=== PATIENT | female | born 1980 | race African-American/Black ===

== ENCOUNTER 2017-04-06 15:38 | Emergency (ER) | payer OTHER ==
[2017-04-06 15:51] VITALS: BP 147/96; PULSE 89; TEMP 98.5; BMI 30.6
--- NOTE | 2017-04-06 15:53 | PDOC ---
Rapid Medical Evaluation Time Seen by Provider: 04/06/17 15:48 Medical Evaluation: Allergies Allergy/AdvReac Type Severity Reaction Status Date / Time No Known Allergies Allergy Verified 12/27/13 18:11 I have performed a brief in-person evaluation of this patient. The patient presents with a chief complaint of: right wrist pain s/p work injury. 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 Pertinent physical exam findings: pain and swelling to medial right wrist. Pain with pronation and extension of right wrist. I have ordered the following: xray right wrist and hand, hcg The patient will proceed to the ED for further evaluation.
[2017-04-06] MEDS ORDERED: KETOROLAC TROMETHAMINE 60 MG/2 ML VIAL IM ONE (16:59)
[2017-04-06] MEDS ORDERED: KETOROLAC TROMETHAMINE 60 MG/2 ML VIAL ONE (17:00)
--- NOTE | 2017-04-06 17:21 | PDOC ---
History of Present Illness - General Chief Complaint: Injury Stated Complaint: RT WRIST PAIN Time Seen by Provider: 04/06/17 15:48 - History of Present Illness Initial Comments: 04/06/17 17:10 CHIEF COMPLAINT: wrist pain HISTORY OF PRESENT ILLNESS: 37 yo F presents to [facility] [employer] with wrist pain s/p work related injury. 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 PAST MEDICAL HISTORY: Denies past medical history FAMILY HISTORY: Denies SOCIAL HISTORY: Denies tobacco, alcohol, illicit drug use. SURGICAL HISTORY: Denies ALLERGIES: morphine REVIEW OF SYSTEMS General/Constitutional: Denies fever or chills. Denies weakness, weight change. HEENT: Denies change in vision. Denies ear pain or discharge. Denies sore throat. Cardiovascular: Denies chest pain or shortness of breath. Respiratory: Denies cough, wheezing, or hemoptysis. Gastrointestinal: Denies nausea, vomiting, diarrhea or constipation. Denies rectal bleeding. Genitourinary: Denies dysuria, frequency, or change in urination. Musculoskeletal: Pain and swelling to R wrist. Skin and breasts: Denies rash or easy bruising. PHYSICAL EXAM General Appearance: Well-appearing, appropriately dressed. No apparent distress. HEENT: EOMI, PERRLA. No conjunctival pallor. No photophobia, scleral icterus. Respiratory/Chest: Lungs CTAB. Cardiovascular: RRR. S1, S2. Musculoskeletal/Extremities: Swelling and reproducible pain with flexion/ extension of R wrist.FROM of all other extremities, normal capillary refill. Pelvis Stable. No CVA tenderness. No tenderness to extremities, pedal edema, swelling, erythema or deformity. Integumentary: Appropriate color, dry, warm. 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 Fully oriented, alert. Appropriate mood/affect. Motor strength 5/5. No appreciable EOM palsy, facial droop or sensory deficit. 04/06/17 17:34 Past History - Past Medical History Allergies/Adverse Reactions: Allergies Allergy/AdvReac Type Severity Reaction Status Date / Time morphine Allergy Verified 04/06/17 15:51 Home Medications: Ambulatory Orders Diclofenac Sodium 75 mg PO BID #14 tablet. 01/03/18 Asthma: No Cancer: No Cardiac Disorders: No COPD: No Diabetes: No HTN: No Seizures: No Thyroid Disease: No - Immunization History Td Vaccination: Yes Immunization Up to Date: Yes - Suicide/Smoking/Psychosocial Hx Smoking Status: No Smoking History: Never smoked Years of Tobacco Use: 0 Have you smoked in the past 12 months: No Number of Cigarettes Smoked Daily: 0 Cigars Per Day: 0 Hx Alcohol Use: Yes (SOCIAL) Drug/Substance Use Hx: No Substance Use Type: None Hx Substance Use Treatment: No *Physical Exam - Vital Signs Last Vital Signs Temp Pulse Resp BP Pulse Ox 98.5 F 89 20 147/96 98 04/06/17 15:48 04/06/17 15:48 04/06/17 15:48 04/06/17 15:48 04/06/17 15:48 ED Treatment Course - ADDITIONAL ORDERS Additional order review: Laboratory Results 04/06/17 16:25 Urine HCG, Qual Negative - Medications Given in the ED: ED Medications Discontinued Medications Generic Name Dose Route Start Last Admin Trade Name Freq PRN Reason Stop Dose Admin Ketorolac Tromethamine 60 mg 04/06/17 16:59 04/06/17 17:03 Toradol Injection - IM 04/06/17 17:00 60 mg ONCE ONE Administration Medical Decision Making - Medical Decision Making 04/06/17 17:36 37 yo F presents to [facility] with wrist pain s/p work related injury. -urine preg -xray x-ray negative for fracture or dislocation. wrist splint NSAIDS for pain Advised patien tto f/u with ortho if pain persists; patient verbalized understanding and agrees to plan. *DC/Admit/Observation/Transfer Diagnosis at time of Disposition: Right wrist sprain Qualifiers: Encounter type: initial encounter Qualified Code(s): S63.501A - Unspecified sprain of right wrist, initial encounter - Discharge Dispostion Disposition: HOME Condition at time of disposition: Stable Admit: No - Prescriptions Prescriptions: Diclofenac Sodium 75 mg PO BID #14 tablet.dr - Referrals Referrals: Myron Mitchell MD [Primary Care Provider] - Nikolai Duarte MD [Staff Physician] - - Patient Instructions Printed Discharge Instructions: DI for Wrist Sprain Additional Instructions: Please take medications as prescribed. If your symptoms persist for more than 3 -5 days, please follow up with the hand/wrist specialist for further evaluation. If you develop any new or worsening symptoms, please return to the ER. - Post Discharge Activity Forms/Work/School Notes: Back to Work
== END 2017-04-06 17:28 | disposition home or self-care (01) ==
LOC: JERFT 15:38
PROC: 3E0233Z Introduction of Anti-inflammatory into Muscle, Percutaneous Approach (ICD-10-PCS; principal; 2017-04-06)
PROC: 2W3CX1Z Immobilization of Right Lower Arm using Splint (ICD-10-PCS; 2017-04-06)
DX: S63.501A Unspecified sprain of right wrist, initial encounter (principal); X50.0XXA Overexertion from strenuous movement or load, initial encounter; Y93.F2 Activity, caregiving, lifting; Y92.128 Other place in nursing home as the place of occurrence of the external cause; Y99.0 Civilian activity done for income or pay
CPT/HCPCS: 73110-TC-RT; 73130-TC-RT; 84703; 99281-25

== ENCOUNTER 2017-05-09 08:26 | Emergency (ER) | payer OTHER ==
[2017-05-09 08:36] VITALS: BP 130/78; PULSE 80; TEMP 97.9; BMI 32.1
--- NOTE | 2017-05-09 10:15 | PDOC ---
History of Present Illness - General Chief Complaint: Cold Symptoms Stated Complaint: COUGH Time Seen by Provider: 05/09/17 10:03 History Source: Patient Exam Limitations: No Limitations - History of Present Illness Initial Comments: 05/09/17 10:10 c/o cough for 2 days. no fever no chills. no asthma history. Past History - Past Medical History Allergies/Adverse Reactions: Allergies Allergy/AdvReac Type Severity Reaction Status Date / Time morphine Allergy Verified 05/09/17 08:33 Home Medications: Ambulatory Orders Diclofenac Sodium 75 mg PO BID #14 tablet. 04/06/17 Benzonatate [Tessalon Pearls -] 100 mg PO TID #21 capsule 05/09/17 Asthma: No Cancer: No Cardiac Disorders: No COPD: No Diabetes: No HTN: Yes Seizures: No Thyroid Disease: No - Immunization History Td Vaccination: Yes Immunization Up to Date: Yes - Suicide/Smoking/Psychosocial Hx Smoking Status: No Smoking History: Never smoked Years of Tobacco Use: 0 Have you smoked in the past 12 months: No Number of Cigarettes Smoked Daily: 0 Cigars Per Day: 0 Information on smoking cessation initiated: No Hx Alcohol Use: Yes (SOCIAL) Drug/Substance Use Hx: No Substance Use Type: None Hx Substance Use Treatment: No Review of Systems - Review of Systems Able to Perform ROS?: Yes Is the patient limited [place] proficient: No Constitutional: No: Symptoms Reported Respiratory: Yes: Symptoms reported, Cough *Physical Exam - Vital Signs Last Vital Signs Temp Pulse Resp BP Pulse Ox 97.9 F 80 18 130/78 100 05/09/17 08:34 05/09/17 08:34 05/09/17 08:34 05/09/17 08:34 05/09/17 08:34 - Physical Exam General Appearance: Yes: Nourished, Appropriately Dressed HEENT: positive: EOMI, WALDO, TMs Normal, Pharynx Normal. negative: TM Erythema Neck: positive: Supple. negative: Tender Respiratory/Chest: positive: Lungs Clear, Normal Breath Sounds. negative: Crackles, Rales, Rhonchi, Stridor, Wheezing Cardiovascular: positive: Regular Rhythm, Regular Rate Gastrointestinal/Abdominal: positive: Normal Bowel Sounds, Soft Musculoskeletal: positive: Normal Inspection Extremity: positive: Normal Capillary Refill, Normal Inspection, Normal Range of Motion Integumentary: positive: Normal Color, Dry, Warm Neurologic: positive: Fully Oriented, Alert, Normal Mood/Affect, Normal Response , Motor Strength /5 Medical Decision Making - Medical Decision Making 05/09/17 10:11 cc: cough with exp wheeze last night no wheeze today no fever no abd pain or vomiting. will give cough medicine non toxic well appearing *DC/Admit/Observation/Transfer Diagnosis at time of Disposition: Cough in adult - Discharge Dispostion Disposition: HOME Condition at time of disposition: Good - Prescriptions Prescriptions: Benzonatate [Tessalon Pearls -] 100 mg PO TID #21 capsule - Referrals Referrals: Myron Mitchell MD [Primary Care Provider] - - Patient Instructions Printed Discharge Instructions: How to Avoid a Cold or Flu Additional Instructions: drink pleanty of water take tessalon for cough follow with your doctor if any worsening symptoms - Post Discharge Activity
== END 2017-05-09 10:17 | disposition home or self-care (01) ==
LOC: JERFT 08:26
DX: R05 Cough (principal)
CPT/HCPCS: 99281-25

== ENCOUNTER 2018-01-16 12:03 | Emergency (ER) | payer OTHER ==
[2018-01-16 12:06] VITALS: BP 140/92; PULSE 99; TEMP 99.4; BMI 33.6
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
== END 2018-01-16 13:34 | disposition home or self-care (01) ==
LOC: JERFT 12:03
DX: S90.32XA Contusion of left foot, initial encounter (principal); W20.8XXA Other cause of strike by thrown, projected or falling object, initial encounter; Y93.89 Activity, other specified; Y92.128 Other place in nursing home as the place of occurrence of the external cause; Y99.0 Civilian activity done for income or pay
CPT/HCPCS: 73630-TC-LT; 99281-25

== ENCOUNTER 2018-05-11 08:15 | Emergency (ER) | payer OTHER ==
[2018-05-11 08:24] VITALS: BP 143/90; PULSE 87; TEMP 98.2; BMI 32.9
--- NOTE | 2018-05-11 08:51 | PDOC ---
History of Present Illness - General Chief Complaint: Oral Ulcers Stated Complaint: SWOLLEN MOUTH AND TOUNGE Time Seen by Provider: 05/11/18 08:35 History Source: Patient Exam Limitations: No Limitations - History of Present Illness Initial Comments: 05/11/18 08:58 Patient is a 38-year-old female who presents to the ER for oral ulcers for the last 3 days. Patient states she is using triamcinolone cream in the mouth but it is not working. She states that was at her to hot and cold bother her mouth. She has not taken anything for pain. Denies fevers, chills, shortness of breath , difficulty breathing, nausea and vomiting. Past History - Travel Traveled outside of the country in the last 30 days: No Close contact w/someone who was outside of country & ill: No - Past Medical History Allergies/Adverse Reactions: Allergies Allergy/AdvReac Type Severity Reaction Status Date / Time morphine AdvReac Verified 05/11/18 08:24 Home Medications: Ambulatory Orders NK [No Known Home Medication] 01/16/18 Asthma: No Cancer: No Cardiac Disorders: No COPD: No Diabetes: No HTN: Yes Seizures: No Thyroid Disease: No - Immunization History Td Vaccination: Yes Immunization Up to Date: Yes - Suicide/Smoking/Psychosocial Hx Smoking Status: No Smoking History: Never smoked Years of Tobacco Use: 0 Have you smoked in the past 12 months: No Number of Cigarettes Smoked Daily: 0 Cigars Per Day: 0 Information on smoking cessation initiated: No Hx Alcohol Use: No Drug/Substance Use Hx: No Substance Use Type: None Hx Substance Use Treatment: No Review of Systems - Review of Systems Able to Perform ROS?: Yes Comments:: 05/11/18 08:50 CONSTITUTIONAL: Absent: fever, chills, diaphoresis, generalized weakness, malaise, loss of appetite HEENT: Absent: rhinorrhea, nasal congestion, throat pain, throat swelling, difficulty swallowing, mouth swelling, ear pain, eye pain, visual Changes SKIN: Present: Oral ulcers Absent: rash, itching, pallor NEUROLOGIC: Absent: headache, focal weakness or paresthesias, dizziness, unsteady gait, seizure, mental status changes, bladder or bowel incontinence PSYCHIATRIC: Absent: anxiety, depression, suicidal or homicidal ideation, hallucinations. Is the patient limited [place] proficient: No *Physical Exam - Vital Signs Last Vital Signs Temp Pulse Resp BP Pulse Ox 98.2 F 87 16 143/90 100 05/11/18 08:21 05/11/18 08:21 05/11/18 08:21 05/11/18 08:21 05/11/18 08:21 - Physical Exam Comments: 05/11/18 08:51 GENERAL: The patient is awake, alert, and fully oriented, in no acute distress. HEAD: Normal with no signs of trauma. EYES: Pupils equal, round and reactive to light, extraocular movements intact, sclera anicteric, conjunctiva clear. MOUTH: Oral ulcers to the buccal mucosa b/l. Also with multiple ulcers under the tongue. Uvual is midline. No airway edema. Tonsils without erythema, exudate or edema EXTREMITIES: Normal range of motion, no edema. NEUROLOGICAL: Normal speech, normal gait. PSYCH: Normal mood, normal affect. SKIN: Warm, Dry, normal turgor, no rashes or lesions noted. Moderate Sedation - Procedure Monitoring Vital Signs: Procedure Monitoring Vital Signs Temperature 98.2 F 05/11/18 08:21 Pulse Rate 87 05/11/18 08:21 Respiratory Rate 16 05/11/18 08:21 Blood Pressure 143/90 05/11/18 08:21 O2 Sat by Pulse Oximetry (%) 100 05/11/18 08:21 Medical Decision Making - Medical Decision Making 05/11/18 09:00 Patient is a 38-year-old female who presents to the ER for oral ulcers for the last 3 days. Patient appears to have canker sores along the bilateral bucca mucosa and under the tongue. Does not have the typical cold sore appearance. Instructed patient to stop taking the triamcinolone and putting in her mouth. Magic mouthwash ordered for the patient. Patient instructed to follow up with her dentist. Vital signs stable, patient afebrile. Discharge home I discussed the physical exam findings, ancillary test results and final diagnoses with the patient. I answered all of the patient's questions. The patient was satisfied with the care received and felt comfortable with the discharge plan and treatment plan. The Patient agrees to follow up with the primary care physician/specialist within 24-72 hours. Return precautions were given. *DC/Admit/Observation/Transfer Diagnosis at time of Disposition: Oral ulcer - Discharge Dispostion Disposition: HOME Condition at time of disposition: Stable Decision to Admit order: No - Referrals Referrals: Myron Mitchell MD [Primary Care Provider] - - Patient Instructions Printed Discharge Instructions: DI for Aphthous Ulcers (Canker Sores) Additional Instructions: You have canker sores or oral ulcers Use the magic mouth wash twice a day Avoid food that will irriate the mouth such as very hot or cold foods Follow up with your dentist this week Return to the ED for any new or worsening symptoms - Post Discharge Activity Forms/Work/School Notes: Back to Work
[2018-05-11] MEDS ORDERED: MAG HYDROX/ALH/SMC/DPHA/LIDO 240 ML MOUTHWASH MM ONE (08:57)
== END 2018-05-11 09:35 | disposition home or self-care (01) ==
LOC: JERFT 08:15
DX: K12.0 Recurrent oral aphthae (principal)
CPT/HCPCS: 99281-25

== ENCOUNTER 2018-05-25 02:19 | Emergency (ER) | payer OTHER ==
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
[2018-05-25 02:40] VITALS: BMI 32.9
[2018-05-25] MEDS ORDERED: KETOROLAC TROMETHAMINE 30 MG/1 ML VIAL IM ONE (02:46)
[2018-05-25] MEDS ORDERED: KETOROLAC TROMETHAMINE 30 MG/1 ML VIAL ONE (03:20)
[2018-05-25 04:19] VITALS: BP 122/71; PULSE 78; TEMP 98.4
== END 2018-05-25 04:19 | disposition home or self-care (01) ==
LOC: JER 02:19
PROC: 3E0233Z Introduction of Anti-inflammatory into Muscle, Percutaneous Approach (ICD-10-PCS; principal; 2018-05-25)
DX: S49.81XA Other specified injuries of right shoulder and upper arm, initial encounter (principal); S49.82XA Other specified injuries of left shoulder and upper arm, initial encounter; Y04.2XXA Assault by strike against or bumped into by another person, initial encounter; Y93.F9 Activity, other caregiving; Y92.128 Other place in nursing home as the place of occurrence of the external cause; Y99.0 Civilian activity done for income or pay; I10 Essential (primary) hypertension; Y07.9 Unspecified perpetrator of maltreatment and neglect
CPT/HCPCS: 73030-TC-LT-FY; 73030-TC-RT-FY; 84703; 99282-25

== ENCOUNTER 2019-12-18 05:19 | Inpatient (IN) | payer OTHER ==
[2019-12-17 17:19] VITALS: BMI 31.9
--- OUTSIDE RECORDS SUMMARY | 2019-12-18 05:22 | XMS ---
:1980 Author Organization [facility] Support Name Relationship Address Phone [facility] Unavailable [address] [place] [address] [employer] [address] [place] [address] Re-disclosure Warning The records that you are about to access may contain information from federally- assisted alcohol or drug abuse programs. If such information is present, then the following federally mandated warning applies: This information has been disclosed to you from records protected by federal confidentiality rules (42 CFR part 2). The federal rules prohibit you from making any further disclosure of this information unless further disclosure is expressly permitted by the written consent of the person to whom it pertains or as otherwise permitted by 42 CFR part 2. A general authorization for the release of medical or other information is NOT sufficient for this purpose. The Federal rules restrict any use of the information to criminally investigate or prosecute any alcohol or drug abuse patient.The records that you are about to access may contain highly sensitive health information, the redisclosure of which is protected by Article 27-F of the [facility] Public Health law. If you continue you may haveaccess to information: Regarding HIV / AIDS; Provided by facilities licensed or operated by the [facility] Office of Mental Health; or Provided by the [facility] Office for People With Developmental Disabilities. If such information is present, then the following [facility] mandated warning applies: This information has been disclosed to you from confidential records which are protected by state law. State law prohibits you from making any further disclosure of this information without the specific written consent of the person to whom it pertains, or as otherwise permitted by law. Any unauthorized further disclosure in violation of state law may result in a fine or longterm sentence or both. A general authorization for the release of medical or other information is NOT sufficient authorization for further disclosure. Insurance Providers Payer name Policy type Policy ID Covered Covered libertarian's Policy P too / Coverage libertarian ID relationship to Romero Inf ormation type romero LOCAL [id number] - [id number] [facility] FUND COMPENSATION CLM#[id number] SP CLM #[id number] RV RV [place] CL# [id number] SP CL# [id number] FIRE INXCO PENDING WC/NF [id number] SP [id number] ONLY COMPENSATION CL# [id number] SP CL# [id number] SELF PAY INSURANCE PENDING WC/NF [id number] SP [id number] ONLY Results ID Date Data Source [id number] 12/13/2019 10:19:00 AM EDT [facility] Name Value Range Interpretation Description Data Sup porting Code Source(s) Document(s ) SARS [facility] coronavirus 2 RNA This lab was ordered by [facility] and reported by [facility]. ID Date Data Source [id number] 12/12/2019 07:00:00 AM EDT [facility] Name Value Range Interpretation Description Data Sup porting Code Source(s) Document(s ) 2019 Novel [facility] Coronavirus RNA Interpretation Unspecified Specimen Qualitative JOSE Probe Detection This lab was ordered by [employer] and rep orted by [facility]. ID Date Data Source [id number] 12/12/2019 07:00:00 AM EDT [facility] Name Value Range Interpretation Code Description Data Suellen rce(s) Supporting Document(s ) SARS-CoV-2 [facility] by JOSE This lab was ordered by [facility] I/F and reported by [employer]. ID Date Data Source [id number] 12/06/2019 07:00:00 AM EDT [facility] Name Value Range Interpretation Code Description Data Suellen rce(s) Supporting Document(s ) SARS-CoV-2 [facility] by JOSE This lab was ordered by [facility] I/F and reported by [employer]. ID Date Data Source [id number] 12/06/2019 07:00:00 AM EDT [facility] Name Value Range Interpretation Description Data Sup porting Code Source(s) Document(s ) 2019 Novel [facility] Coronavirus RNA Interpretation Unspecified Specimen Qualitative JOSE Probe Detection This lab was ordered by [employer] and [facility] orted by [facility]. ID Date Data Source [id number] 11/29/2019 02:12:00 PM EDT [facility] Name Value Range Interpretation Description Data Sup porting Code Source(s) Document(s ) 2018 Novel [facility] Coronavirus RNA Interpretation Unspecified Specimen Qualitative JOSE Probe Detection This lab was ordered by [employer] and rep orted by [facility]. ID Date Data Source [id number] 11/29/2019 02:12:00 PM EDT [facility] Name Value Range Interpretation Code Description Data Suellen rce(s) Supporting Document(s ) SARS-CoV-2 [facility] by JOSE This lab was ordered by [facility] and reported by [employer]. ID Date Data Source [id number] 11/22/2019 07:15:00 AM EDT [facility] Name Value Range Interpretation Description Data Sup porting Code Source(s) Document(s ) 2018 Novel [facility] Coronavirus RNA Interpretation Unspecified Specimen Qualitative JOSE Probe Detection This lab was ordered by [employer] and [facility] orted by [facility]. ID Date Data Source [id number] 11/22/2019 07:15:00 AM EDT [facility] Name Value Range Interpretation Code Description Data Suellen rce(s) Supporting Document(s ) SARS-CoV-2 [facility] by JOSE This lab was ordered by [facility] I/F and reported by [employer]. ID Date Data Source [id number] 11/15/2019 10:45:00 AM EDT [facility] Name Value Range Interpretation Description Data Sup porting Code Source(s) Document(s ) 2018 Novel [facility] Coronavirus RNA Interpretation Unspecified Specimen Qualitative JOSE Probe Detection This lab was ordered by [employer] and rep orted by [facility]. ID Date Data Source [id number] 11/15/2019 10:45:00 AM EDT [facility] Name Value Range Interpretation Code Description Data Suellen rce(s) Supporting Document(s ) SARS-CoV-2 [facility] by JOSE This lab was ordered by [facility] I/F and reported by [employer]. ID Date Data Source [id number] 11/08/2019 07:00:00 AM EDT [facility] Name Value Range Interpretation Code Description Data Suellen rce(s) Supporting Document(s ) SARS-CoV-2 [facility] by JOSE This lab was ordered by [facility] I/F and reported by [facility]. ID Date Data Source [id number] 11/08/2019 07:00:00 AM EDT [facility] Name Value Range Interpretation Description Data Sup porting Code Source(s) Document(s ) 2019 Novel [facility] Coronavirus RNA Interpretation Unspecified Specimen Qualitative JOSE Probe Detection This lab was ordered by [employer] and rep orted by [facility]. ID Date Data Source [id number] 11/01/2019 07:10:00 AM EDT [facility] Name Value Range Interpretation Description Data Sup porting Code Source(s) Document(s ) SARS [facility] Coronavirus 2 RNA Presence Respiratory Specimen JOSE Probe Detection This lab was ordered by [employer] and rep orted by [facility]. ID Date Data Source [id number] 10/25/2019 01:49:00 PM EDT [facility] Name Value Range Interpretation Description Data Sup porting Code Source(s) Document(s ) SARS [facility] Coronavirus 2 RNA Presence Respiratory Specimen JOSE Probe Detection This lab was ordered by [employer] and rep orted by [facility]. ID Date Data Source [id number] 10/18/2019 11:00:00 AM EDT [facility] Name Value Range Interpretation Description Data Sup porting Code Source(s) Document(s ) SARS [facility] Coronavirus 2 RNA Presence Respiratory Specimen JOSE Probe Detection This lab was ordered by [employer] and rep orted by [facility]. ID Date Data Source [id number] 10/16/2019 02:00:00 PM EDT [facility] Name Value Range Interpretation Description Data Sup porting Code Source(s) Document(s ) SARS [facility] Coronavirus 2 RNA Presence Respiratory Specimen JOSE Probe Detection This lab was ordered by [employer] and rep orted by [facility]. ID Date Data Source [id number] 10/10/2019 01:10:00 PM EDT [facility] Name Value Range Interpretation Description Data Sup porting Code Source(s) Document(s ) SARS [facility] Coronavirus 2 RNA Presence Respiratory Specimen JOSE Probe Detection This lab was ordered by [employer] and rep orted by [facility]. ID Date Data Source [id number] 10/03/2019 10:40:00 AM EDT [facility] Name Value Range Interpretation Description Data Sup porting Code Source(s) Document(s ) SARS [facility] Coronavirus 2 RNA Presence Respiratory Specimen JOSE Probe Detection This lab was ordered by [employer] and rep orted by [facility]. ID Date Data Source [id number] 09/27/2019 11:00:00 AM EDT [facility] Name Value Range Interpretation Description Data Sup porting Code Source(s) Document(s ) SARS [facility] Coronavirus 2 RNA Presence Respiratory Specimen JOSE Probe Detection This lab was ordered by [employer] and rep orted by [facility]. ID Date Data Source [id number] 09/25/2019 10:48:00 AM EDT [facility] Name Value Range Interpretation Description Data Sup porting Code Source(s) Document(s ) SARS [facility] Coronavirus 2 RNA Presence Respiratory Specimen JOSE Probe Detection This lab was ordered by [employer] and rep orted by [facility]. ID Date Data Source [id number] 09/20/2019 07:30:00 AM EDT [facility] Name Value Range Interpretation Description Data Sup porting Code Source(s) Document(s ) SARS [facility] Coronavirus 2 RNA Presence Respiratory Specimen JOSE Probe Detection This lab was ordered by [employer] and rep orted by [facility]. ID Date Data Source [id number] 09/18/2019 10:37:00 AM EDT [facility] Name Value Range Interpretation Description Data Sup porting Code Source(s) Document(s ) SARS [facility] Coronavirus 2 RNA Presence Respiratory Specimen JOSE Probe Detection This lab was ordered by [employer] and rep orted by [facility]. ID Date Data Source [id number] 09/13/2019 03:20:00 PM EDT [facility] Name Value Range Interpretation Description Data Sup porting Code Source(s) Document(s ) SARS [facility] Coronavirus 2 RNA Presence Respiratory Specimen JOSE Probe Detection This lab was ordered by [employer] and rep orted by [facility]. ID Date Data Source [id number] 09/11/2019 01:30:00 PM EDT [facility] Name Value Range Interpretation Description Data Sup porting Code Source(s) Document(s ) SARS [facility] Coronavirus 2 RNA Presence Respiratory Specimen JOSE Probe Detection This lab was ordered by [employer] and rep orted by [facility]. ID Date Data Source [id number] 09/03/2019 01:29:00 PM EDT [facility] Name Value Range Interpretation Description Data Sup porting Code Source(s) Document(s ) SARS [facility] Coronavirus 2 RNA Presence Respiratory Specimen JOSE Probe Detection This lab was ordered by [employer] and rep orted by [facility]. ID Date Data Source [id number] 08/29/2019 11:06:00 AM EDT [facility] Name Value Range Interpretation Description Data Sup porting Code Source(s) Document(s ) SARS [facility] Coronavirus 2 RNA Presence Respiratory Specimen JOSE Probe Detection This lab was ordered by [employer] and rep orted by [facility]. ID Date Data Source [id number] 08/23/2019 12:00:00 AM EDT [facility] Name Value Range Interpretation Code Description Data Suellen rce(s) Supporting Document(s ) 2019-nCoV [facility] RNA XXX JOSE+probe- Imp [id number] and reported by [employer] Procedure
--- NOTE | 2019-12-18 07:13 | HP ---
History & Physical Update - History History: No Change - Physical Physical: No Change - Assessment Assessment: No Change - Plan Plan: No Change (H&P reviwed, no changes, for supracervical vaginal hysterec bright, bilateral salpingectomy)
[2019-12-18] MEDS ORDERED: DEXAMETHASONE SOD PHOSPHATE/PF 10 MG/ML SDV ONE (08:33)
[2019-12-18] MEDS ORDERED: MIDAZOLAM HCL 2 MG/2 ML SINGLE DOSE VIAL ONE ×2 (08:40)
[2019-12-18] MEDS ORDERED: fentaNYL CITRATE 250 MCG/5 ML VIAL ONE (09:27)
[2019-12-18] MEDS ORDERED: KETOROLAC TROMETHAMINE 30 MG/1 ML VIAL ONE (09:35)
[2019-12-18] MEDS ORDERED: LIDOCAINE HCL/PF 2% SDV 5ML VIAL ONE (09:35)
[2019-12-18] MEDS ORDERED: ceFAZolin SODIUM 1 GM VIAL ONE (09:35)
[2019-12-18] MEDS ORDERED: LIDOCAINE HCL 2% JELLY (5 ML/TUBE) ONE (09:35)
[2019-12-18] MEDS ORDERED: DEXAMETHASONE SOD PHOSPHATE 4 MG/1 ML VIAL ONE (09:35)
[2019-12-18] MEDS ORDERED: SODIUM CHLORIDE 0.9% P/F 10 ML VIAL IJ ONE (09:35)
[2019-12-18] MEDS ORDERED: ceFAZolin SODIUM 1 GM VIAL IVPB ONE (09:38)
[2019-12-18] MEDS ORDERED: ROCURONIUM BROMIDE 100 MG/10 ML VIAL ONE (09:48)
[2019-12-18] MEDS ORDERED: ONDANSETRON 4 MG/2 ML VIAL IVPUSH PRN ×2 (10:07→11:25)
[2019-12-18] MEDS ORDERED: oxyCODONE HCL 5 MG TABLET PO PRN ×3 (10:08→11:27)
[2019-12-18] MEDS ORDERED: LACTATED RINGERS SOLUTION 1,000 ML IV SCH (10:15)
[2019-12-18] MEDS ORDERED: NEOSTIGMINE METHYLSULFATE 0.5 MG/ML - 10 ML MDV ONE (10:24)
[2019-12-18] MEDS ORDERED: HYDROmorphone HCl 2 MG/ML VIAL ONE (10:25)
[2019-12-18] MEDS ORDERED: IBUPROFEN 800 MG/8 ML IJ IVPB PRN (11:25)
[2019-12-18] MEDS ORDERED: IBUPROFEN 600 MG TABLET (FP) PO PRN (11:25)
--- NOTE | 2019-12-18 11:32 | OP ---
Operative Note - Note: Operative Date: 12/18/19 Pre-Operative Diagnosis: menometrorrhagia, pelvic pain , fibroids , anemia Operation: supracervical abdominal hysterectomy , bilateral salpingectomy Findings: large irregular fibroid uterus, LT corpus leuteum cyst Surgeon: Yang Jaramillo Sound Editor: Shauna Jordan Anesthesia: General Specimens Removed: uterus, both fallopian tubes Estimated Blood Loss (mls): 200 Drains & Tubes with Location: bowden Drains, Volume Out (mls): 300 Blood Volume Replaced (mls): 0 Fluid Volume Replaced (mls): 1,000 Operative Report Dictated: Yes
--- NOTE | 2019-12-18 12:23 | OP ---
DATE OF OPERATION: 12/18/2019 PREOPERATIVE DIAGNOSES: Menometrorrhagia, fibroid uterus, anemia and pelvic pain. POSTOPERATIVE DIAGNOSES: Menometrorrhagia, fibroid uterus, anemia and pelvic pain. PROCEDURE: Supracervical abdominal hysterectomy, bilateral salpingectomy. SURGEON: Yang Jaramillo MD JEWEL STRIPPER: Danita Jordan MD ANESTHESIA: General. ESTIMATED BLOOD LOSS: 200 mL. FINDINGS: A large fibroid uterus with multiple myomas and a left corpus luteum cyst with bleeding. OPERATION: Patient was taken to the operating room. Under adequate general anesthesia, abdomen and perineum were prepped and draped. Macdonald catheter was inserted. Abdomen was prepped for the hysterectomy, supra area. Pfannenstiel low abdominal skin incision was made over previous incision. Abdominal wall was cut layer by layer until peritoneum was exposed and incised. Upon entering the abdominal cavity, upper abdomen was checked, was normal. Uterus was enlarged, occupying the whole pelvic cavity, and multiple large fibroids were seen. Both ovaries checked. The right was normal. The left had a corpus luteum which was oozing blood. Bladder was normal. Then, bowels were packed away and the cornual region of the uterus was grasped with 2 clamp Sissy and uterus was delivered and then both round ligaments were identified, clamped with a bipolar LigaSure cautery and then cauterized and cut; and then the bladder flap was developed and bladder was pushed down. Then, the right tube was grasped with [place] and then along the mesosalpinx with LigaSure cautery, cauterized and the tube was removed. The same repeated for the opposite tube. Then, a hole was made in the broad ligament and then the uteroovarian ligament was grasped with a Joyce clamp and cut and the ovaries were severed from uterus and then the pedicles were first tied with 2-0 Vicryl ties and then with 2-0 Vicryl suture bilaterally. At this time, the bladder was further pushed down. Uterine artery was identified bilaterally, clamped with Joyce clamp and cut, and the clamp replaced with 0 Vicryl suture bilaterally. Then, the paracervical area was clamped with Joyce clamp, cut and the clamp replaced with 0 Vicryl suture bilaterally and the uterus was removed above the cervix. Then, cervix was sutured with interrupted suture of 1 Vicryl. Hemostasis was established, and the left corpus luteum and the ovary were oozing and bleeding. Several sutures were placed in the area to establish hemostasis. Then, pelvic cavity was several times irrigated. No active bleeding was seen; and all the lap pad, sponge and instrument counts were correct. Then, peritoneum was closed with 0 Vicryl continuous suture. Muscles were brought together with interrupted suture of 0 Vicryl. Fascia was closed with 0 Vicryl continuous suture, subcutaneous fat with interrupted suture of 0 Vicryl and skin was closed with 3-0 Vicryl subcuticular continuous suture. Patient tolerated procedure well, left the OR in good condition. Violet [id number]
[2019-12-18] MEDS: oxyCODONE HCL 5 MG TABLET PO PRN (16:17)
[2019-12-18] MEDS: ACETAMINOPHEN 325 MG TABLET (FP) PO SCH ×3 (16:20→21:51)
[2019-12-18] MEDS: ELECTROLYTE-148 SOLN 1,000 ML IV SCH (16:22)
[2019-12-18] MEDS: CEFAZOLIN 2 GM/D5W 2 GM/50 ML ML IVPB SCH (18:06)
[2019-12-18] MEDS ORDERED: IBUPROFEN 800 MG/8 ML IJ IVPB ONE (19:45)
[2019-12-18] MEDS: oxyCODONE HCL 10 MG SUSTAINED ACTING TABLET PO SCH (21:51)
[2019-12-19] MEDS: CEFAZOLIN 2 GM/D5W 2 GM/50 ML ML IVPB SCH (01:15)
[2019-12-19] MEDS: ACETAMINOPHEN 325 MG TABLET (FP) PO SCH ×4 (05:18→22:12)
[2019-12-19] MEDS ORDERED: INSULIN (LEVEMIR) 100 UNITS/ML UNITS SQ ONE (06:51)
[2019-12-19] MEDS ORDERED: SIMETHICONE 80 MG TAB.CHEW (FP) PO PRN (07:38)
[2019-12-19] MEDS ORDERED: BISACODYL 5 MG TABLET.DR (FP) PO ONE (07:39)
[2019-12-19] MEDS ORDERED: SENNOSIDES/DOCUSATE COMBO (SENNA PLUS) TABLET (UD) PO PRN (07:40)
[2019-12-19 07:57] LABS: HEMATOCRIT 29.9 % (32.4-45.2); HEMOGLOBIN 9.6 GM/dL (10.7-15.3); MCH 22.4 pg (25.7-33.7); MCHC 32.2 g/dl (32.0-36.0); MEAN CELL VOLUME 69.5 fl (80-96); MEAN PLT VOLUME 9.5 fl (7.5-11.1); PLATELET COUNT 234 K/MM3 (134-434); RDW 18.8 % (11.6-15.6); WHITE BLOOD COUNT 10.5 K/mm3 (4.0-10.0)
[2019-12-19 08:38] LABS: POTASSIUM 3.8 mmol/L (3.5-5.1)
[2019-12-19 08:51] LABS: BLOOD UREA NITROGEN 9.2 mg/dL (7-18); CALCIUM 8.4 mg/dL (8.5-10.1); CREATININE 0.7 mg/dL (0.55-1.3)
[2019-12-19] MEDS: ENOXAPARIN NA (PORCINE) 40 MG/0.4 ML DISP.SYRIN SQ SCH (11:09)
[2019-12-19] MEDS: FAMOTIDINE 20 MG TABLET PO SCH (11:10)
[2019-12-19] MEDS: oxyCODONE HCL 10 MG SUSTAINED ACTING TABLET PO SCH ×2 (11:10→22:12)
[2019-12-19] MEDS: LOSARTAN POTASSIUM 50 MG TABLET (FP) PO SCH (11:11)
[2019-12-19] MEDS: amLODIPine BESYLATE 10 MG TABLET (FP) PO SCH (11:11)
--- NOTE | 2019-12-19 16:50 | PN ---
Progress Note (short form) - Note Progress Note: Post op day#1.S/P MAGALIE with BSO under GA uneventful.Patient stable and c/o some pain for which she is on medication.No any anesthesia related problem.Patient Dc from the anesthesia care.
[2019-12-19] MEDS: ELECTROLYTE-148 SOLN 1,000 ML IV SCH (17:17)
[2019-12-19] MEDS: oxyCODONE HCL 5 MG TABLET PO PRN (17:26)
--- NOTE | 2019-12-19 22:03 | PN ---
Progress Note (short form) - Note Progress Note: pod 1 doing well, has mild low abdominal discomfort, passing gas CBC, BMP 12/19/19 06:30 12/19/19 06:30 Last Vital Signs Temp Pulse Resp BP Pulse Ox 98.4 F 84 20 123/68 96 12/19/19 20:52 12/19/19 20:52 12/19/19 20:52 12/19/19 20:52 12/19/19 20:52 abdomen soft, no distension, no cva, BS present no calf tenderness no vaginal bleeding pod 1 afebrile plan ambulate , pain management observation, if afebrile plan for d/c home in am
[2019-12-20] MEDS: ACETAMINOPHEN 325 MG TABLET (FP) PO SCH (06:06)
--- NOTE | 2019-12-20 07:36 | DS ---
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 Vital Signs: Vital Signs Temperature 98.4 F 12/19/19 20:52 Pulse Rate 84 12/19/19 20:52 Respiratory Rate 20 12/19/19 20:52 Blood Pressure 123/68 12/19/19 20:52 O2 Sat by Pulse Oximetry (%) 96 12/19/19 20:52 Constitutional: Yes: Well Nourished, No Distress, Calm Eyes: Yes: WNL, Conjunctiva Clear, EOM Intact HENT: Yes: WNL, Atraumatic, Normocephalic Neck: Yes: WNL, Supple, Trachea Midline Cardiovascular: Yes: WNL, Regular Rate and Rhythm Respiratory: Yes: WNL, Regular, CTA Bilaterally Gastrointestinal: Yes: WNL ...Rectal Exam: Yes: WNL Renal/: Yes: WNL Breast(s): Yes: WNL Musculoskeletal: Yes: WNL Extremities: Yes: WNL Edema: No Integumentary: Yes: WNL Wound/Incision: Yes: Clean/Dry, Well Approximated, Sutures Intact Neurological: Yes: WNL, Alert, Oriented ...Motor Strength: WNL Psychiatric: Yes: WNL, Alert, Oriented Labs: CBC, BMP 12/19/19 06:30 12/19/19 06:30 Discharge Summary Problems reviewed: Yes Reason For Visit: FIBROIDS UTERUS Procedures: Principal: supracervical abdominal hysterectomy , bilateral salpingectomy Hospital Course: no complication Plan of Treatment: follow up office 2 weeks Condition: Good - Instructions Diet, Activity, Other Instructions: regular diet, no intercourse, follow up office 2 weeks, if fever, pain, heavy vaginal bleeding call Referrals: Yang Jaramillo MD [Staff Physician] - Disposition: HOME - Home Medications Comprehensive Discharge Medication List: Ambulatory Orders Amlodipine Besylate 10 mg PO DAILY 12/17/19 Iron Sucrose Complex [Venofer] 100 mg IV UTDICT 12/17/19 Losartan Potassium 50 mg PO DAILY 12/17/19 Iron,Carb/Vit C/Vit B12/Folic [Iron 100 Plus Tablet] 1 each PO DAILY 12/18/19 Ibuprofen [Motrin -] 600 mg PO QID #28 tablet 12/19/19 Oxycodone HCl [Oxaydo] 5 mg PO TID PRN #20 tablet.orl MDD 4 12/20/19
[2019-12-20] MEDS: oxyCODONE HCL 10 MG SUSTAINED ACTING TABLET PO SCH (09:03)
[2019-12-20] MEDS: amLODIPine BESYLATE 10 MG TABLET (FP) PO SCH (09:04)
[2019-12-20] MEDS: ENOXAPARIN NA (PORCINE) 40 MG/0.4 ML DISP.SYRIN SQ SCH (09:04)
[2019-12-20] MEDS: FAMOTIDINE 20 MG TABLET PO SCH (09:04)
[2019-12-20] MEDS: LOSARTAN POTASSIUM 50 MG TABLET (FP) PO SCH (09:05)
[2019-12-20 09:21] VITALS: BP 120/70; PULSE 77; TEMP 98.8
--- NOTE | 2019-12-21 10:24 | PATH ---
Surgical Pathology Report Patient Name: KATHRYN PANIAGUA Med. Rec. #: [id number] /Age/Gender: 1980 (Age: 39) / F Account: [id number] Location: [facility] MED/SURG Taken: 12/18/2019 Received: 12/18/2019 Reported: 12/21/2019 Physicians: Yang Jaramillo M.D. Specimen(s) Received UTERUS AND BILATERAL FALLOPIAN TUBES Clinical History Fibroid uterus Final Diagnosis UTERUS AND BILATERAL FALLOPIAN TUBES, ABDOMINAL SUPRACERVICAL HYSTERECTOMY AND BILATERAL SALPINGECTOMY: 596 G UTERUS. LEIOMYOMA(TA), SUBSEROSAL AND INTRAMURAL, WITH FOCAL DEGENERATIVE CHANGES AND CALCIFICATION. PLACENTAL SITE NODULE AT CERVICAL STUMP MARGIN OF RESECTION. SECRETORY ENDOMETRIUM. MYOMETRIUM WITH ADENOMYOSIS. LONGER FALLOPIAN TUBE WITHOUT SIGNIFICANT PATHOLOGIC FINDINGS (INCLUDING FULL LUMINAL PORTION AND FIMBRIATED END). SHORTER FALLOPIAN TUBE WITH FOCAL CALCIFICATION (INCLUDING FULL LUMINAL PORTION AND FIMBRIATED END). Comment: History of prior noted. Findings discussed with Dr. Jaramillo, 12/21/19. Electronically Signed Mckenna Mcneal M.D. Gross Description Received in formalin labeled "uterus and bilateral fallopian tubes" is a 596 g supracervically amputated uterus. The uterus measures 10 cm from superior to inferior, 9 cm from left to right and 6.8 cm from anterior to posterior. The serosa shows bulging subserosal nodules. The endometrial cavity measures 3 cm in length and 5 cm from cornu to cornu. The endometrium is hemorrhagic, measuring up to 0.1 cm in thickness. The myometrium is hawkins-pink, trabeculated, measuring up to 2.5 cm in thickness. The myometrium displays multiple intramural nodules, measuring up to 4.5 cm in greatest dimension. The cut surface of the nodules is hawkins, rubbery and displays a whorled architecture. One of the smaller intramural nodules shows degenerative changes and focal calcification. No areas of hemorrhage or necrosis are identified. Two undesignated fimbriated fallopian tubes which measure 3.5 and 4.5 cm in length are identified. The outer surface is hawkins-gutierrez and smooth. Sectioning reveals an unremarkable lumen. Sizer Hand sections are submitted in 11 cassettes as follows: 1-cervical stump margin of resection; 2--anterior endomyometrium; 3-posterior endomyometrium; 4- smaller intramural nodules; 5-6 larger intramural nodules; 7- additional posterior myometrium; 8- longer fallopian tube fimbria; 9-cross sections of longer fallopian tube; 10- shorter fallopian tube fimbria; 11-cross sections of shorter fallopian tube. MLSZ12/18/2019 san12/18/2019
== END 2019-12-20 09:58 | disposition home or self-care (01) | DRG 743 ==
LOC: J2C 05:19 → J8W 15:42
PROVIDERS: ADMIT Obstetrics & Gynecology; ATTEND Obstetrics & Gynecology
PROC: 0UB70ZZ Excision of Bilateral Fallopian Tubes, Open Approach (ICD-10-PCS; 2019-12-18)
PROC: 0UT90ZL Resection of Uterus, Supracervical, Open Approach (ICD-10-PCS; principal; 2019-12-18 09:00)
DX: D25.1 Intramural leiomyoma of uterus (principal); D25.2 Subserosal leiomyoma of uterus; N92.1 Excessive and frequent menstruation with irregular cycle; R10.2 Pelvic and perineal pain; D64.9 Anemia, unspecified; N80.0 Endometriosis of uterus; N83.12 Corpus luteum cyst of left ovary
CPT/HCPCS: 36415; 80048; 84703; 85027; 86850; 86900; 86901; 88307-TC; 94760

== ENCOUNTER 2020-03-27 17:43 | Emergency (ER) | payer OTHER ==
[2020-03-27 17:56] VITALS: BP 136/83; PULSE 74; TEMP 97.9; BMI 32.4
[2020-03-27] MEDS ORDERED: ACETAMINOPHEN 500 MG TABLET (FP) PO ONE (18:46)
[2020-03-27] MEDS ORDERED: ACETAMINOPHEN 500 MG TABLET (FP) ONE (18:47)
== END 2020-03-27 18:51 | disposition home or self-care (01) ==
LOC: JERFT 17:43
DX: K08.89 Other specified disorders of teeth and supporting structures (principal)
CPT/HCPCS: 99283-25

== ENCOUNTER 2020-12-06 01:12 | Emergency (ER) | payer OTHER ==
[2020-12-06 01:20] VITALS: BP 135/89; PULSE 78; TEMP 98.3; BMI 33.3
== END 2020-12-06 02:23 | disposition home or self-care (01) ==
LOC: JER 01:12
DX: R21 Rash and other nonspecific skin eruption (principal)
CPT/HCPCS: 99281-25

== ENCOUNTER 2021-04-06 08:51 | Emergency (ER) | payer OTHER ==
[2021-04-06 09:01] VITALS: BP 157/80; PULSE 90; TEMP 97.7; BMI 33.1
[2021-04-06] MEDS ORDERED: FLUORESCEIN NA 1 EA STRIP ONE (10:01)
== END 2021-04-06 11:47 | disposition home or self-care (01) ==
LOC: JERFT 08:51
DX: S05.91XA Unspecified injury of right eye and orbit, initial encounter (principal); S05.01XA Injury of conjunctiva and corneal abrasion without foreign body, right eye, initial encounter; W45.8XXA Other foreign body or object entering through skin, initial encounter
CPT/HCPCS: 99283-25

== ENCOUNTER 2022-03-06 01:47 | Emergency (ER) | payer OTHER ==
[2022-03-06 02:02] VITALS: BP 157/95; PULSE 84; RESP 18; TEMP 98.2; BMI 33.0
[2022-03-06] MEDS ORDERED: IBUPROFEN 400 MG TABLET (FP) PO ONE ×2 (02:22→02:27)
[2022-03-06] MEDS ORDERED: LIDOCAINE VISCOUS 2% ORAL/TOP 15 ML UNIT-DOSE CUP MM ONE (02:32)
[2022-03-06] MEDS ORDERED: LIDOCAINE VISCOUS 2% ORAL/TOP 15 ML UNIT-DOSE CUP ONE (02:41)
[2022-03-06 03:13] LABS: THROAT:GRP A STREP NOT DETECTED (NOTDETECTED)
[2022-03-06] MEDS ORDERED: DEXAMETHASONE LIQUID 0.5 MG/5 ML PO ONE (03:23)
[2022-03-06] MEDS ORDERED: DEXAMETHASONE SOD PHOSPHATE 10 MG/1 ML VIAL ONE (03:45)
== END 2022-03-06 04:25 | disposition home or self-care (01) ==
LOC: JER 01:47
DX: R07.0 Pain in throat (principal)
CPT/HCPCS: 0241U-QW; 87651; 99283-25

== ENCOUNTER 2022-04-20 04:47 | Day surgery (SDC) | payer OTHER ==
[2022-04-16 11:01] VITALS: BMI 34.1
[2022-04-20 12:08] VITALS: TEMP 98
[2022-04-20 12:44] VITALS: BP 108/90; PULSE 89; RESP 21
== END 2022-04-20 12:45 | disposition home or self-care (01) ==
LOC: JASU-ENDO 04:47
PROVIDERS: ATTEND Internal Medicine Gastroenterology
PROC: 0DBL8ZX Excision of Transverse Colon, Via Natural or Artificial Opening Endoscopic, Diagnostic (ICD-10-PCS; 2022-04-20)
PROC: 0DBF8ZX Excision of Right Large Intestine, Via Natural or Artificial Opening Endoscopic, Diagnostic (ICD-10-PCS; 2022-04-20)
PROC: 0DBM8ZX Excision of Descending Colon, Via Natural or Artificial Opening Endoscopic, Diagnostic (ICD-10-PCS; principal; 2022-04-20 10:00)
DX: Z12.11 Encounter for screening for malignant neoplasm of colon (principal); K57.30 Diverticulosis of large intestine without perforation or abscess without bleeding; K64.8 Other hemorrhoids
CPT/HCPCS: 88305-TC

== ENCOUNTER 2022-05-27 04:09 | Day surgery (SDC) | payer OTHER ==
[2022-05-25 13:51] VITALS: BMI 33.9
[2022-05-27 12:37] VITALS: BP 132/57; PULSE 87; RESP 18; TEMP 98
== END 2022-05-27 12:56 | disposition home or self-care (01) ==
LOC: JASU-ENDO 04:09
PROVIDERS: ATTEND Internal Medicine Gastroenterology
PROC: 0DB78ZX Excision of Stomach, Pylorus, Via Natural or Artificial Opening Endoscopic, Diagnostic (ICD-10-PCS; 2022-05-27)
PROC: 0DB68ZX Excision of Stomach, Via Natural or Artificial Opening Endoscopic, Diagnostic (ICD-10-PCS; principal; 2022-05-27 10:45)
DX: K29.50 Unspecified chronic gastritis without bleeding (principal); B96.81 Helicobacter pylori [H. pylori] as the cause of diseases classified elsewhere
CPT/HCPCS: 88305-TC; 88342-TC

== ENCOUNTER 2023-04-23 15:34 | Emergency (ER) | payer OTHER ==
[2023-04-23 15:45] VITALS: BP 163/97; PULSE 89; RESP 19; TEMP 98.6; BMI 33.9
[2023-04-23 16:57] LABS: BASO % 0.8 % (0-2.0); EOS % 1.5 % (0-4.5); HEMATOCRIT 34.8 % (32.4-45.2); HEMOGLOBIN 11.1 GM/dL (10.7-15.3); LYMPH % 37.5 % (8-40); MCHC 31.9 g/dl (32.0-36.0); MEAN CELL VOLUME 75.3 fl (80-96); MEAN PLT VOLUME 8.2 fl (7.5-11.1); MONO % 10.2 % (3.8-10.2); PLATELET COUNT 235 10^3/uL (134-434); RBC 4.61 M/mm3 (3.60-5.2); RDW 16.4 % (11.6-15.6); WHITE BLOOD COUNT 6.9 K/mm3 (4.0-10.0)
[2023-04-23 17:00] LABS: PH,URINE 6.5 (5.0-8.0); URINE APPEARANCE CLEAR; URINE BILIRUBIN NEGATIVE (NEGATIVE); URINE COLOR YELLOW; URINE GLUCOSE (UA) NEGATIVE (NEGATIVE); URINE KETONE NEGATIVE (NEGATIVE); URINE LEUK ESTERASE NEGATIVE (NEGATIVE); URINE NITRITE NEGATIVE (NEGATIVE); URINE PROTEIN NEGATIVE (NEGATIVE); URINE UROBILINOGEN 0.2 mg/dL (0.2-1.0)
[2023-04-23 17:03] LABS: HCG,QUALITATIVE URINE Negative
[2023-04-23 17:16] LABS: POTASSIUM 3.4 mmol/L (3.5-5.1)
[2023-04-23 17:18] LABS: ALBUMIN 3.8 g/dl (3.4-5.0); BLOOD UREA NITROGEN 6.2 mg/dL (7-18); CALCIUM 8.7 mg/dL (8.5-10.1)
[2023-04-23 17:21] LABS: CREATININE 0.6 mg/dL (0.55-1.3)
[2023-04-23 17:23] LABS: BILIRUBIN,TOTAL 0.7 mg/dL (0.2-1); TOT PROT 7.8 g/dl (6.4-8.2)
[2023-04-23] MEDS ORDERED: KETOROLAC TROMETHAMINE 15 MG/ML VIAL IVPUSH ONE (18:16)
== END 2023-04-23 18:52 | disposition home or self-care (01) ==
LOC: JERFT 15:34 → JER 15:34 → JERFT 18:52
DX: M54.50 Low back pain, unspecified (principal)
CPT/HCPCS: 36415; 74176-TC; 80053; 81003; 84703; 85025; 87086; 99284-25

== ENCOUNTER 2023-05-31 11:38 | Emergency (ER) | payer OTHER ==
[2023-05-31 12:04] VITALS: BP 127/84; PULSE 86; RESP 16; TEMP 98.6; BMI 33.9
[2023-05-31] MEDS ORDERED: ACETAMINOPHEN INJECTION 100 ML IVPB ONE (13:14)
[2023-05-31] MEDS ORDERED: METOCLOPRAMIDE HCL INJECTION 10 MG/2 ML VIAL ONE (13:14)
[2023-05-31] MEDS ORDERED: MECLIZINE HCL 25 MG TABLET (FP) ONE (13:14)
[2023-05-31] MEDS: MECLIZINE HCL 25 MG TABLET (FP) PO ONE (13:19)
[2023-05-31] MEDS: SODIUM CHLORIDE 0.9% 500 ML INFUS.BAG IV ONE (13:20)
[2023-05-31] MEDS: METOCLOPRAMIDE HCL INJECTION 10 MG/2 ML VIAL IVPB ONE (13:20)
[2023-05-31] MEDS: ACETAMINOPHEN 1000 MG/100 ML BAG IVPB ONE (13:20)
[2023-05-31 13:23] LABS: BASO % 0.8 % (0-2.0); EOS % 2.2 % (0-4.5); HEMATOCRIT 35.3 % (32.4-45.2); HEMOGLOBIN 11.6 GM/dL (10.7-15.3); LYMPH % 27.8 % (8-40); MCH 24.6 pg (25.7-33.7); MCHC 32.8 g/dl (32.0-36.0); MEAN CELL VOLUME 74.8 fl (80-96); MEAN PLT VOLUME 8.2 fl (7.5-11.1); MONO % 10.9 % (3.8-10.2); NEUT % 58.3 % (42.8-82.8); PLATELET COUNT 234 10^3/uL (134-434); RBC 4.72 M/mm3 (3.60-5.2); RDW 17.1 % (11.6-15.6); WHITE BLOOD COUNT 7.7 K/mm3 (4.0-10.0)
[2023-05-31 13:44] LABS: POTASSIUM 3.8 mmol/L (3.5-5.1)
[2023-05-31 13:46] LABS: CALCIUM 8.8 mg/dL (8.5-10.1)
[2023-05-31 13:47] LABS: ALBUMIN 3.6 g/dl (3.4-5.0); MAGNESIUM 2.1 mg/dL (1.8-2.4)
[2023-05-31 13:50] LABS: CREATININE 0.7 mg/dL (0.55-1.3)
[2023-05-31 13:51] LABS: TOT PROT 7.4 g/dl (6.4-8.2)
[2023-05-31 13:52] LABS: BILIRUBIN,TOTAL 0.6 mg/dL (0.2-1)
== END 2023-05-31 15:53 | disposition home or self-care (01) ==
LOC: JER 11:38
PROC: 3E033NZ Introduction of Analgesics, Hypnotics, Sedatives into Peripheral Vein, Percutaneous Approach (ICD-10-PCS; principal; 2023-05-31)
PROC: 3E033GC Introduction of Other Therapeutic Substance into Peripheral Vein, Percutaneous Approach (ICD-10-PCS; 2023-05-31)
DX: R42 Dizziness and giddiness (principal); R11.10 Vomiting, unspecified; H93.13 Tinnitus, bilateral
CPT/HCPCS: 36415; 80053; 83735; 84703; 85025; 93005; 93010; 99284-25; J0131

== ENCOUNTER 2023-09-06 10:09 | Emergency (ER) | payer OTHER ==
[2023-09-06 10:24] VITALS: BP 135/83; PULSE 85; RESP 20; TEMP 97.8; BMI 33.4
[2023-09-06 11:04] LABS: THROAT:GRP A STREP NOT DETECTED (NOTDETECTED)
== END 2023-09-06 12:14 | disposition home or self-care (01) ==
LOC: JERFT 10:09
DX: R05.9 Cough, unspecified (principal); J06.9 Acute upper respiratory infection, unspecified; R50.9 Fever, unspecified; J02.9 Acute pharyngitis, unspecified; R09.81 Nasal congestion; Z20.822 Contact with and (suspected) exposure to COVID-19
CPT/HCPCS: 0241U-QW; 87651; 99283-25

== ENCOUNTER 2023-11-01 00:54 | Emergency (ER) | payer OTHER ==
[2023-11-01 01:04] VITALS: BP 138/81; PULSE 93; RESP 20; TEMP 97.8; BMI 33.9
[2023-11-01] MEDS ORDERED: KETOROLAC TROMETHAMINE 30 MG/1 ML VIAL ONE (02:32)
[2023-11-01] MEDS: KETOROLAC TROMETHAMINE 30 MG/1 ML VIAL IM ONE (02:35)
== END 2023-11-01 02:39 | disposition home or self-care (01) ==
LOC: JER 00:54
PROC: 3E0233Z Introduction of Anti-inflammatory into Muscle, Percutaneous Approach (ICD-10-PCS; principal; 2023-11-01)
DX: M79.671 Pain in right foot (principal)
CPT/HCPCS: 99284-25